=== PATIENT | male | born 1945 | race Caucasian/White ===

== ENCOUNTER → 2016-12-01 | Outpatient (CLI) | payer MEDICARE, OTHER | END | disposition home or self-care (01) | LOC: CFH 08:09 | PROVIDERS: ATTEND Nurse Practitioner Family | DX: R10.13 Epigastric pain (principal) | CPT/HCPCS: 74241 ==

== ENCOUNTER 2019-08-08 16:40 | Observation (INO) | payer MEDICARE, OTHER ==
[~2019-08-08] VITALS: Ht 180.3 cm; Wt 93.3 kg
--- NOTE | 2019-08-08 16:40 | NUR ---
THIS IS A 74 YO M BIB [facility] FOR POSSIBLE CVA. EMS REPORTED PATIENT HAD "DIFFICULTY FORMING SENTENCES AT THE ORTHPEDIC CLINIC". PATIENT IS CURRENTLY A&OX4 WITH NO SIGNS OF WEAKNESS IN EXTEMITIES OR FACIAL DROOP. CODE NEURO CANCELED PER PROVIDER AND PATIENT MOVED TO CORE ROOM. REPORT GIVEN TO ANTONIO ELAM. PATIENT RESTING ON GURNEY WITH SIDE RAILS UP X2. RESPIRATIONS EVEN AND UNLAORED. PATIENT IS IN NO ACUTE DISTRESS. FAMILY AT BEDSIDE. CALL LIGHT IN REACH.
--- NOTE | 2019-08-08 16:50 | NUR ---
Received report from MARIALUISA Barbosa. All questions answered. Pt pushed on guney to room with family. NADN. No needs expressed. Assuming care of pt at this time.
[2019-08-08] MEDS ORDERED: SODIUM CHLORIDE FLUSH 10ML SYR IVF ONE (17:00)
[2019-08-08 17:10] LABS: BASOPHILS # (AUTO) 0.02 x10^3/uL (0-0.1); BASOPHILS % (AUTO) 0 % (0-1); EOSINOPHILS # (AUTO) 0.19 x10^3/uL (0-0.4); EOSINOPHILS % (AUTO) 3 % (1-7); LYMPHOCYTES # (AUTO) 2.26 x10^3/uL (1-3.4); LYMPHOCYTES % (AUTO) 38 % (22-44); MD NO; MEAN CORPUSCULAR HEMOGLOBIN 32.9 pg (27.5-34.5); MEAN CORPUSCULAR VOLUME 99.8 fL (81-97); MEAN PLATELET VOLUME 9.2 fL (7.4-10.4); MONOCYTES # (AUTO) 0.46 x10^3/uL (0.2-0.8); MONOCYTES % (AUTO) 8 % (2-9); NEUTROPHILS # (AUTO) 2.98 x10^3/uL (1.8-6.8); NEUTROPHILS % (AUTO) 50 % (42-75); PLATELET COUNT 195 x10^3/uL (130-400); RED BLOOD COUNT 5.06 x10^6/uL (4.38-5.82); RED CELL DISTRIBUTION WIDTH 13.4 % (9.4-14.8)
--- NOTE | 2019-08-08 17:12 | NUR ---
Patient taken on gurney to imaging at this time.
[2019-08-08 17:20] LABS: ALANINE AMINOTRANSFERASE 45 U/L (12-78); ALBUMIN 4.4 g/dL (3.4-5.0); ANION GAP 8 mmol/L (5-15); CALCIUM 9.9 mg/dL (8.5-10.1); CHLORIDE 104 mmol/L (98-107); CREATININE 1.51 mg/dL (0.7-1.3)
[2019-08-08 17:22] LABS: ALKALINE PHOSPHATASE 49 U/L (45-117); BILIRUBIN,TOTAL 0.6 mg/dL (0.2-1.0); TOTAL PROTEIN 8.4 g/dL (6.4-8.2)
[2019-08-08] MEDS ORDERED: TRIA1TAB3 PO (17:44)
[2019-08-08] MEDS ORDERED: TADA5TAB2 PO (17:44)
[2019-08-08] MEDS ORDERED: GLIM4TAB4 PO (17:44)
[2019-08-08] MEDS ORDERED: METF1000 PO (17:44)
[2019-08-08] MEDS ORDERED: LISINOPRIL PO-COUM (17:44)
[2019-08-08] MEDS ORDERED: CANA300T PO (17:44)
[2019-08-08] MEDS ORDERED: PRAV20TA2 PO (17:44)
[2019-08-08 18:40] LABS: MICROSCOPIC AUTO
[2019-08-08] MEDS ORDERED: ACETAMINOPHEN 325 MG TABLET ONE (18:46)
[2019-08-08 18:50] LABS: CULTURE INDICATED? NO
[2019-08-08] MEDS ORDERED: ACETAMINOPHEN 325 MG TABLET PO ONE (19:00)
--- NOTE | 2019-08-08 19:16 | NUR ---
Provided bedside report to MARIALUISA Daley. All questions answered. NADN. No needs expressed. MARIALUISA Daley to assume care of pt at this time.
[2019-08-08] MEDS ORDERED: SODIUM CHLORIDE FLUSH 10ML SYR IVF PRN (19:30)
--- NOTE | 2019-08-08 19:41 | NUR ---
REPORT GIVEN TO MARIALUISA HICKS. PLAN OF CARE DISCUSSED.
[2019-08-08] MEDS ORDERED: SODIUM CHLORIDE 0.9% 1,000 ML IV SCH (19:55)
[2019-08-08] MEDS ORDERED: ONDANSETRON 2MG/ML, 2ML IVPush PRN (20:00)
[2019-08-08] MEDS ORDERED: BISACODYL 10 MG SUPP PR PRN (20:00)
[2019-08-08] MEDS ORDERED: ACETAMINOPHEN 325 MG TABLET PO PRN (20:00)
[2019-08-08] MEDS ORDERED: DOCUSATE 100 MG CAPSULE PO PRN (20:00)
[2019-08-08] MEDS ORDERED: hydrALAzine 20 MG/ML, 1ML IVPush PRN (20:00)
[2019-08-08] MEDS ORDERED: POLYETHYLENE GLYCOL 17 GM PACKET PO PRN (20:00)
[2019-08-08] MEDS ORDERED: ONDANSETRON ODT 4 MG PO PRN (20:00)
[2019-08-08] MEDS ORDERED: PROMETHAZINE 25 MG/ML, 1ML IM PRN (20:00)
[2019-08-08] MEDS ORDERED: LISI-170 PO (20:37)
[2019-08-08] MEDS ORDERED: PLEASE ENTER ALLERGIES MC SCH (21:00)
[2019-08-08] MEDS: HEPARIN 5,000 UNITS/ML, 1ML SQ SCH (21:21)
[2019-08-08 21:22] VITALS: BP 167/90
[2019-08-08 21:30] LABS: FREE T4 (FREE THYROXINE) 0.94 ng/dL (0.76-1.46)
[2019-08-08] MEDS: PLEASE ENTER ALLERGIES MC SCH ×2 (21:30→22:30)
[2019-08-08] MEDS: INSULIN LISPRO 100 UNITS/ML, PEN SQ-INSULIN SCH (22:33)
[2019-08-09 00:35] VITALS: BP 150/75
[2019-08-09] MEDS: HEPARIN 5,000 UNITS/ML, 1ML SQ SCH ×2 (05:19→14:32)
[2019-08-09] MEDS ORDERED: ASPIRIN 325 MG TABLET EC PO SCH (06:00)
[2019-08-09 06:23] LABS: ALBUMIN 3.4 g/dL (3.4-5.0); ANION GAP 8 mmol/L (5-15); BASOPHILS # (AUTO) 0.03 x10^3/uL (0-0.1); BASOPHILS % (AUTO) 1 % (0-1); CALCIUM 8.9 mg/dL (8.5-10.1); CHLORIDE 108 mmol/L (98-107); EOSINOPHILS # (AUTO) 0.17 x10^3/uL (0-0.4); EOSINOPHILS % (AUTO) 4 % (1-7); LYMPHOCYTES # (AUTO) 1.49 x10^3/uL (1-3.4); LYMPHOCYTES % (AUTO) 32 % (22-44); MD NO; MEAN CORPUSCULAR HEMOGLOBIN 32.6 pg (27.5-34.5); MEAN CORPUSCULAR HGB CONC 32.7 g/dL (33.2-36.2); MEAN CORPUSCULAR VOLUME 99.7 fL (81-97); MONOCYTES # (AUTO) 0.38 x10^3/uL (0.2-0.8); MONOCYTES % (AUTO) 8 % (2-9); NEUTROPHILS # (AUTO) 2.58 x10^3/uL (1.8-6.8); NEUTROPHILS % (AUTO) 56 % (42-75); PLATELET COUNT 169 x10^3/uL (130-400); RED BLOOD COUNT 4.57 x10^6/uL (4.38-5.82)
[2019-08-09 06:27] LABS: ALANINE AMINOTRANSFERASE 31 U/L (12-78); ALKALINE PHOSPHATASE 34 U/L (45-117); BILIRUBIN,TOTAL 0.9 mg/dL (0.2-1.0); CHOLESTEROL, TOTAL 218 mg/dL (140-239); CREATININE 1.06 mg/dL (0.7-1.3); HDL CHOL % 25 % (26-37); HDL CHOLESTEROL (DIRECT) 54 mg/dL (40-60); LDL CHOLESTEROL,CALCULATED 110 mg/dL (54-169); TOTAL PROTEIN 6.6 g/dL (6.4-8.2); TRIGLYCERIDES 271 mg/dL (50-200); VLDL CHOLESTEROL 54 mg/dL (0-25)
[2019-08-09] MEDS: INSULIN LISPRO 100 UNITS/ML, PEN SQ-INSULIN SCH ×3 (07:52→16:04)
[2019-08-09] MEDS ORDERED: POTASSIUM CHLORIDE 20 MEQ TAB.ER.PRT PO ONE (08:00)
[2019-08-09] MEDS ORDERED: SODIUM CHLORIDE 0.9% 1,000 ML IV SCH (08:00)
[2019-08-09] MEDS ORDERED: ACETAMINOPHEN 325 MG TABLET PO PRN (08:00)
[2019-08-09] MEDS ORDERED: TRIAMTERENE-HCTZ 37.5/25 MG TABLET PO SCH (09:00)
[2019-08-09] MEDS ORDERED: TADALAFIL 5 MG PO SCH (09:00)
[2019-08-09] MEDS ORDERED: LISINOPRIL 20 MG TABLET PO SCH (09:00)
[2019-08-09] MEDS ORDERED: GLIMEPIRIDE 4 MG TABLET PO SCH (09:00)
[2019-08-09 10:14] VITALS: BP 166/88
[2019-08-09] MEDS ORDERED: PRAV20TA2 PO (10:53)
[2019-08-09] MEDS ORDERED: AMLO2.5T5 PO (10:55)
[2019-08-09] MEDS ORDERED: OMNIPAQUE 350 MG/ML, 100ML BOTTLE ONE (11:30)
[2019-08-09 12:02] VITALS: BP 155/91
[2019-08-09] MEDS ORDERED: ATORVASTATIN 40 MG TABLET PO SCH (21:00)
[2019-08-10] MEDS ORDERED: AMLODIPINE 2.5 MG TABLET PO SCH (09:00)
[2019-08-10] MEDS ORDERED: PRAVASTATIN 20 MG TABLET PO SCH (09:00)
== END 2019-08-09 17:28 | disposition home or self-care (01) ==
LOC: ED 19:34 → EDIP 19:40 → INTOOBSV 19:40 → 4WST 20:25 → DCLOUNGE 08-09 16:57
PROVIDERS: ADMIT Internal Medicine; ATTEND Internal Medicine
DX: G45.9 Transient cerebral ischemic attack, unspecified (principal); E11.9 Type 2 diabetes mellitus without complications; E78.5 Hyperlipidemia, unspecified; N40.0 Benign prostatic hyperplasia without lower urinary tract symptoms; N17.0 Acute kidney failure with tubular necrosis; I10 Essential (primary) hypertension; G47.00 Insomnia, unspecified; E87.6 Hypokalemia; G46.0 Middle cerebral artery syndrome; Z85.828 Personal history of other malignant neoplasm of skin; D75.89 Other specified diseases of blood and blood-forming organs; Z79.899 Other long term (current) drug therapy
CPT/HCPCS: 36415; 70450; 70496; 70498; 70551; 71045; 80053; 80061; 81001; 82306; 82607; 82962; 83036; 83735; 84439; 84443; 85025; 92523; 93005; 93306; 96360; 96361; 96372; 99284; G0378; J1644; J1815; J7030; Q9967